=== PATIENT | male | born 1945 | race Caucasian/White ===

== ENCOUNTER 2016-06-22 12:28 | Day surgery (SDC) | payer OTHER ==
[~2016-06-22] VITALS: Ht 180.3 cm; Wt 122.5 kg
[~2016-06-22 12:28] MED LIST: ATORVASTATIN CA40 MG PO; FUROSEMIDE20 MG PO; GABAPENTIN600 MG PO; LANTUS 10100 UNITS/ SC; LISINOPRIL30 MG PO; NOVOLOG 10100 UNITS/ SC; OMEPRAZOLE20 MG PO; VITAMIN D-32000 UNI2 PO
[2016-06-22 13:11] LABS: POINT-OF-CARE METER ID UU14174212
[2016-06-22] MEDS ORDERED: PROVENTIL HFA6.7 GM IH (13:26)
[2016-06-22] MEDS ORDERED: SPIRIVA1 INHALATI IH (13:28)
[2016-06-22] MEDS ORDERED: COMBIVENT RESPIM4 GM IH (13:29)
[2016-06-22 13:36] VITALS: BP 176/88
[2016-06-22 15:54] LABS: POINT-OF-CARE METER ID UU13113675
[2016-06-22 16:20] VITALS: BP 123/84
[2016-06-22 17:10] VITALS: BP 119/80
== END 2016-06-22 17:18 | disposition home or self-care (01) ==
LOC: SDC 12:28
PROVIDERS: Orthopaedic Surgery Hand Surgery
DX: M18.11 Unilateral primary osteoarthritis of first carpometacarpal joint, right hand (principal); M19.041 Primary osteoarthritis, right hand; M65.331 Trigger finger, right middle finger; E11.9 Type 2 diabetes mellitus without complications; I10 Essential (primary) hypertension; J44.9 Chronic obstructive pulmonary disease, unspecified; G47.30 Sleep apnea, unspecified; E78.5 Hyperlipidemia, unspecified; Z96.651 Presence of right artificial knee joint; Z79.4 Long term (current) use of insulin
CPT/HCPCS: 82948; 94640; C1769; J0131; J0690; J1170; J2250; J2405; J3010; S0020